=== PATIENT | female | born 1945 | race American Indian/Alaskan Native ===

== ENCOUNTER 2017-02-20 12:02 | Emergency (ER) | payer MEDICARE, OTHER ==
[2017-02-20 12:15] VITALS: TEMP 97.7; O2SAT 97
--- NOTE | 2017-02-20 12:45 | C.PDOC ---
History Of Present Illness 71 y/o female presents to ED with complaints of intermittent sore throat for 2 weeks. Patient states sore throat became worse yesterday when in her community building that had air conditioning on. Patient reports gargling salt, water and bleach with no improvement. Patient denies fever, nausea, vomiting, vision changes. She denies fever. She denies difficulty swallowing. Time Seen by Provider: 02/20/17 12:23 Chief Complaint (Nursing): ENT Problem History Per: Patient History/Exam Limitations: None Onset/Duration Of Symptoms: Days Current Symptoms Are (Timing): Still Present Past Medical History Reviewed: Historical Data, Nursing Documentation, Vital Signs Vital Signs: Last Vital Signs Temp 97.7 F 02/20/17 12:10 Pulse 65 02/20/17 12:10 Resp 18 02/20/17 12:10 BP 93/66 L 02/20/17 12:10 Pulse Ox 97 02/20/17 13:08 - Medical History PMH: Asthma (allergies), Kidney Stones, Chronic Kidney Disease Family History: States: Unknown Family Hx - Social History Hx Alcohol Use: No Hx Substance Use: No - Immunization History Hx Tetanus Toxoid Vaccination: No Hx Influenza Vaccination: No Hx Pneumococcal Vaccination: No Review Of Systems Constitutional: Negative for: Fever, Chills Eyes: Negative for: Vision Change ENT: Positive for: Throat Pain. Negative for: Ear Pain, Nose Pain, Nose Discharge, Mouth Pain, Mouth Swelling, Throat Swelling Cardiovascular: Negative for: Chest Pain, Palpitations, Edema, Light Headedness Respiratory: Negative for: Cough, Shortness of Breath, SOB with Excertion, Pleuritic Pain, Wheezing Gastrointestinal: Negative for: Nausea, Vomiting Genitourinary: Negative for: Dysuria Skin: Negative for: Rash Physical Exam - Physical Exam Appears: Well, Non-toxic, No Acute Distress Skin: Normal Color, Warm Head: Atraumatic, Normacephalic Eye(s): bilateral: Normal Inspection, PERRL, EOMI Nose: Normal Oral Mucosa: Moist Tongue: Normal Appearing Lips: Normal Appearing Teeth: Normal Dentition Gingiva: Normal Appearing Throat: Erythema, No Exudate, No Drooling, No Mass Neck: Supple, Other (No thyromegaly) Chest: Symmetrical Cardiovascular: Rhythm Regular Respiratory: Normal Breath Sounds, No Rales, No Rhonchi, No Wheezing Gastrointestinal/Abdominal: Soft, No Tenderness, No Mass, No Distention Back: Normal Inspection, No CVA Tenderness Extremity: Normal ROM Neurological/Psych: Oriented x3 ED Course And Treatment O2 Sat by Pulse Oximetry: 97 (RA) Medical Decision Making Medical Decision Making: Plan: * Strep Test to rule out Strep throat * 1:06PM Strep negative. Patient is well appearing and afebrile. She was instructed to follow-up with ENT for further evaluation of chronic sore throat Disposition - Disposition Referrals: Yan Sheppard MD [Staff Provider] - Disposition: HOME/ ROUTINE Disposition Time: 13:07 Condition: GOOD Additional Instructions: Keep throat moist. Follow-up with PMD within 2 days for further evaluation of chronic sore throat. Follow up with ENT. Avoid gargling with bleach. Return to ED if condition worsens. Instructions: Pharyngitis (ED) - Clinical Impression Clinical Impression: Sore throat - Scribe Statement The provider has reviewed the documentation as recorded by the Miriamibmaribell White All medical record entries made by the Jonna were at my direction and personally dictated by me. I have reviewed the chart and agree that the record accurately reflects my personal performance of the history, physical exam, medical decision making, and the department course for this patient. I have also personally directed, reviewed, and agree with the discharge instructions and disposition.
[2017-02-20 13:18] VITALS: BP 101/65; PULSE 78; RESP 16
== END 2017-02-20 13:17 | disposition home or self-care (01) ==
LOC: C.ER 12:02
DX: J02.9 Acute pharyngitis, unspecified (principal); Z87.891 Personal history of nicotine dependence

== ENCOUNTER 2017-08-26 12:39 | Emergency (ER) | payer MEDICARE, OTHER ==
[2017-08-26] MEDS ORDERED: Albuterol 0.083% Inhal Sol (2.5 mg/3 mL) UD INH STA (13:31)
[2017-08-26] MEDS ORDERED: Albuterol 0.083% Inhal Sol (2.5 mg/3 mL) UD ONE (14:11)
[2017-08-26 14:13] LABS: BASO % 0.7 % (0.0-2.0); EOS % 0.6 % (0.0-4.0); HEMOGLOBIN 13.6 g/dL (11.0-16.0); LYMPH # 1.9 K/uL (1.0-4.3); LYMPH % 43.7 % (20.0-40.0); MEAN CELL VOLUME 86.6 fL (81.0-99.0); MEAN CORPUSCULAR HGB CONC 34.6 g/dL (33.0-37.0); MONO # 0.5 K/uL (0.0-0.8); MONO % 11.7 % (0.0-10.0); NEUT # 1.9 K/uL (1.8-7.0); NEUT % 43.3 % (50.0-75.0); RBC 4.53 Mil/uL (3.80-5.20); RED CELL DISTRIBUTION WIDTH 13.6 % (11.5-14.5); WHITE BLOOD COUNT 4.4 K/uL (4.8-10.8)
--- NOTE | 2017-08-26 14:14 | RAD ---
Chest x-ray two views History: Shortness of breath. Comparison: 02/12/2016 Findings: Diffuse increased interstitial lung markings which may represent mild venous congestion versus mild interstitial infiltrate. Patchy increased markings at the right lung base. Small right pleural effusion. Tortuous aorta. Degenerative changes in the spine with paravertebral osteophytes. Impression: Diffuse increased interstitial lung markings which may represent mild venous congestion versus mild interstitial infiltrate. Patchy increased markings at the right lung base. Small right pleural effusion.
[2017-08-26] MEDS ORDERED: Azithromycin 500 MG in Sodium Chloride 0.9% 250 ML IVPB STA (14:23)
[2017-08-26 14:33] LABS: ALBUMIN 3.9 g/dL (3.5-5.0); CALCIUM 9.1 mg/dl (8.6-10.4); GFR AFRICAN-AMERICAN > 60; GFR NON-AFRICAN AMERICAN > 60
[2017-08-26 14:34] LABS: ALT/SGPT 27 U/L (9-52); AST/SGOT 35 U/L (14-36); BLOOD UREA NITROGEN 10 mg/dL (7-17); MAGNESIUM 1.9 mg/dL (1.6-2.3)
--- NOTE | 2017-08-26 14:39 | C.PDOC ---
History Of Present Illness 72 year old female presents to ED for evaluation of productive cough with yellow /clear sputum, congestion, and body aches for the last 9 days. Pt was given Rx of Prednisone and Azithromycin with mild improvement. Denies chest pain, shortness of breath, n/v/d, or fever. Time Seen by Provider: 08/26/17 13:02 Chief Complaint (Nursing): Shortness Of Breath History Per: Patient History/Exam Limitations: no limitations Onset/Duration Of Symptoms: Days Current Symptoms Are (Timing): Still Present Exacerbating Factor(s): Coughing Associated Symptoms: Productive Cough. denies: Chest Pain, Bloody Cough, Heart Racing, Leg/Calf Pain, Ankle/Leg Swelling, Dizziness, Light-headedness Recent travel outside of the [place]: No Additional History Per: Patient Past Medical History Reviewed: Historical Data, Nursing Documentation, Vital Signs Vital Signs: Last Vital Signs Temp Pulse 80 08/26/17 16:12 Resp 17 08/26/17 16:12 BP 127/77 08/26/17 16:12 Pulse Ox 100 08/26/17 16:12 - Medical History PMH: Asthma (allergies), Kidney Stones, Chronic Kidney Disease Family History: States: Unknown Family Hx - Social History Hx Alcohol Use: No Hx Substance Use: No - Immunization History Hx Tetanus Toxoid Vaccination: No Hx Influenza Vaccination: No Hx Pneumococcal Vaccination: No Review Of Systems Except As Marked, All Systems Reviewed And Found Negative. Constitutional: Positive for: Other (body aches). Negative for: Fever, Chills ENT: Positive for: Nose Congestion Cardiovascular: Negative for: Chest Pain, Palpitations Respiratory: Positive for: Cough, Sputum. Negative for: Shortness of Breath, Hemoptysis Gastrointestinal: Negative for: Nausea, Vomiting, Abdominal Pain Neurological: Negative for: Headache, Dizziness Physical Exam - Physical Exam Appears: Non-toxic, No Acute Distress Skin: Normal Color, Warm, Dry Head: Atraumatic, Normacephalic Eye(s): bilateral: Normal Inspection Oral Mucosa: Moist Neck: Supple Cardiovascular: Rhythm Regular, No Murmur Respiratory: No Accessory Muscle Use, No Rales, No Rhonchi, Wheezing (expiratory ) Gastrointestinal/Abdominal: Soft, No Tenderness Extremity: Normal ROM, No Pedal Edema, No Deformity Neurological/Psych: Oriented x3, Normal Speech ED Course And Treatment - Laboratory Results Result Diagrams: 08/26/17 14:07 08/26/17 14:07 ECG: Interpreted By Me, Viewed By Me ECG Rhythm: Sinus Rhythm ECG Interpretation: No Acute Changes Interpretation Of ECG: Normal intervals, normal axis, non-specific ST wave changes. Rate From EC (bpm) O2 Sat by Pulse Oximetry: 98 (RA) Pulse Ox Interpretation: Normal Medical Decision Making Medical Decision Making: Plan: Blood work Urinalysis EKG CXR Azithromycin, Solu-Medrol, Rocephin, Albuterol Reassess Assessment: Viral illness Pt refused Zithromax. Patient is being discharged home with instructions to follow up with PMD in 1-2 days for further evaluation. Return to ED if symptoms persist or worsen. Disposition Counseled Patient/Family Regarding: Studies Performed, Diagnosis, Need For Followup, Rx Given - Disposition Disposition: HOME/ ROUTINE Disposition Time: 15:33 Condition: STABLE Additional Instructions: follow up with your doctor or medical clinic in 2 days call to make an appointment take medications as prescribed return to ER if symptoms worsens or progress Prescriptions: Albuterol HFA [Ventolin HFA 90 mcg/actuation (8 g)] 2 puff IH [id number] #1 puff levoFLOXacin [Levaquin] 500 mg PO DAILY #10 tab predniSONE [predniSONE Tab] 50 mg PO DAILY #4 tab Instructions: Community Acquired Pneumonia (DC) Forms: [facility] ([place] Citizen), General Discharge Instructions - Clinical Impression Clinical Impression: Pneumonia - Scribe Statement The provider has reviewed the documentation as recorded by the Miriamibmaribell Edgar All medical record entries made by the Scribe were at my direction and personally dictated by me. I have reviewed the chart and agree that the record accurately reflects my personal performance of the history, physical exam, medical decision making, and the department course for this patient. I have also personally directed, reviewed, and agree with the discharge instructions and disposition.
[2017-08-26 14:44] LABS: B-TYPE NATRIURETIC PEPTIDE 194 pg/mL (0-900)
[2017-08-26 15:50] LABS: SQUAMOUS EPITHIAL 6 /hpf (0-5); URINE BILIRUBIN NEGATIVE (NEGATIVE); URINE BLOOD NEGATIVE (NEGATIVE); URINE CLARITY Hazy (Clear); URINE COLOR Yellow (YELLOW); URINE GLUCOSE (UA) NORMAL (Normal); URINE LEUKOCYTE ESTERASE TRACE Leu/uL (Negative); URINE NITRATE NEGATIVE (NEGATIVE); URINE PROTEIN NEGATIVE (NEGATIVE)
[2017-08-26 16:14] VITALS: BP 127/77; PULSE 80; RESP 17
[2017-08-28 17:08] VITALS: O2SAT 98
--- NOTE | 2017-08-28 22:53 | CARD ---
APPROVED REPORT EKG Measurement Heart [id number] [place] [id number] <Conclusion> Normal sinus rhythm Normal ECG
== END 2017-08-26 16:04 | disposition home or self-care (01) ==
LOC: C.ER 12:39
DX: J18.9 Pneumonia, unspecified organism (principal)
CPT/HCPCS: 71046; 80053; 81001; 83735; 83880; 84484; 85025; 96365; 96375; 99283; J0696; J2930

== ENCOUNTER 2017-09-25 14:10 | Emergency (ER) | payer MEDICARE, OTHER ==
[2017-09-25 16:55] LABS: BASO % 0.9 % (0.0-2.0); EOS # 0.1 K/uL (0.0-0.7); EOS % 2.5 % (0.0-4.0); LYMPH # 1.9 K/uL (1.0-4.3); LYMPH % 41.7 % (20.0-40.0); MEAN CELL VOLUME 87.6 fL (81.0-99.0); MEAN CORPUSCULAR HEMOGLOBIN 29.8 pg (27.0-31.0); MEAN PLATELET VOLUME 7.1 fL (7.2-11.7); MONO # 0.5 K/uL (0.0-0.8); MONO % 10.8 % (0.0-10.0); NEUT % 44.1 % (50.0-75.0); NRBC % 0.1 % (0.0-2.0); RBC 4.72 Mil/uL (3.80-5.20); RED CELL DISTRIBUTION WIDTH 14.4 % (11.5-14.5); WHITE BLOOD COUNT 4.5 K/uL (4.8-10.8)
[2017-09-25 17:04] LABS: URINE BACTERIA RARE (<OCC); URINE BILIRUBIN NEGATIVE (NEGATIVE); URINE BLOOD NEGATIVE (NEGATIVE); URINE CLARITY Clear (Clear); URINE COLOR Yellow (YELLOW); URINE GLUCOSE (UA) NORMAL (Normal); URINE LEUKOCYTE ESTERASE NEGATIVE Leu/uL (Negative); URINE NITRATE NEGATIVE (NEGATIVE); URINE PROTEIN NEGATIVE (NEGATIVE)
--- NOTE | 2017-09-25 17:05 | C.PDOC ---
History Of Present Illness 72 year old female presents to the ED for evaluation of numbness to her left hip and lower back pain which began 5 days ago. Patient states symptoms are worse with movement. She has been taking Advil with transient relief. Patient denies fever, chills, chest pain, shortness of breath, difficulty urinating, urinary/bowel incontinence, abdominal pain, or injuries. Time Seen by Provider: 09/25/17 15:21 Chief Complaint (Nursing): Hip Pain History Per: Patient History/Exam Limitations: no limitations Onset/Duration Of Symptoms: Days (5) Current Symptoms Are (Timing): Still Present Additional History Per: Patient - Hip Description Of Injury: denies: Fell Past Medical History Reviewed: Historical Data, Nursing Documentation, Vital Signs Vital Signs: Last Vital Signs Temp 98.5 F 09/25/17 15:03 Pulse 67 09/25/17 15:03 Resp 16 09/25/17 15:03 BP 119/71 09/25/17 15:03 Pulse Ox 98 09/25/17 17:14 - Medical History PMH: Asthma (allergies), Kidney Stones, Chronic Kidney Disease Surgical History: No Surg Hx Family History: States: Unknown Family Hx - Social History Hx Alcohol Use: No Hx Substance Use: No - Immunization History Hx Tetanus Toxoid Vaccination: No Hx Influenza Vaccination: No Hx Pneumococcal Vaccination: No Review Of Systems Cardiovascular: Negative for: Chest Pain Respiratory: Negative for: Shortness of Breath Genitourinary: Negative for: Incontinence Musculoskeletal: Positive for: Back Pain (lower ) Neurological: Positive for: Numbness (left hip ) Physical Exam - Physical Exam Appears: Non-toxic, No Acute Distress Skin: Normal Color, Warm, Dry, No Other (cellulitis processes ) Head: Atraumatic, Normacephalic Oral Mucosa: Moist Neck: Supple Chest: Symmetrical, No Deformity, No Tenderness Cardiovascular: Rhythm Regular, No Murmur Respiratory: Normal Breath Sounds, No Rales, No Rhonchi, No Wheezing Back: Paraspinal Tenderness (lumbar) Extremity: Normal ROM, Tenderness (to left gluteal region ), Capillary Refill ( less than 2 seconds ), No Swelling, No Other (palpable cord) Pulses: Left Dorsalis Pedis: Normal, Right Dorsalis Pedis: Normal Neurological/Psych: Oriented x3, Normal Speech, Normal Cognition, Normal Sensation ED Course And Treatment - Laboratory Results Result Diagrams: 09/25/17 16:50 09/25/17 17:32 O2 Sat by Pulse Oximetry: 98 (on RA) Pulse Ox Interpretation: Normal Medical Decision Making Medical Decision Making: Assessment: hip numbness, back pain Progress: Bloodwork, urinalysis, LS Spine XR, Hip XR ordered and reviewed. Toradol IVP administered. Disposition Counseled Patient/Family Regarding: Studies Performed, Diagnosis, Need For Followup, Rx Given - Disposition Referrals: [facility] [Outside] Disposition: HOME/ ROUTINE Disposition Time: 18:18 Condition: IMPROVED Additional Instructions: follow up with your doctor in 2 days call to make an appointment take medications as prescribed return to ER if symptoms worsens or progress preliminary reading of xray demonstrates no fracture your xray will be officially read by radiologist Prescriptions: Acetaminophen/Codeine [Tylenol/Codeine 300 MG/30 MG] 1 tab PO Q6H PRN #12 tab PRN Reason: Pain, Severe (8-10) Naproxen [Naprosyn] 500 mg PO BID PRN #16 tab PRN Reason: Pain, Moderate (4-7) Instructions: Joint Pain, Hip Pain Forms: [facility] (Slovak), General Discharge Instructions - Clinical Impression Clinical Impression: Arthralgia, Back pain - Scribe Statement The provider has reviewed the documentation as recorded by the Scribe (Margaret Edgar) Provider Attestation: All medical record entries made by the Scribe were at my direction and personally dictated by me. I have reviewed the chart and agree that the record accurately reflects my personal performance of the history, physical exam, medical decision making, and the department course for this patient. I have also personally directed, reviewed, and agree with the discharge instructions and disposition.
[2017-09-25 18:01] LABS: ALBUMIN 3.6 g/dL (3.5-5.0); ALT/SGPT 8 U/L (9-52); AST/SGOT 45 U/L (14-36); BLOOD UREA NITROGEN 12 mg/dL (7-17); CALCIUM 8.1 mg/dl (8.6-10.4); GFR AFRICAN-AMERICAN > 60; GFR NON-AFRICAN AMERICAN > 60
[2017-09-25 18:43] VITALS: BP 130/84; PULSE 58; RESP 18; TEMP 98.1
--- NOTE | 2017-09-26 12:26 | RAD ---
PROCEDURE: HISTORY: pain COMPARISON: None TECHNIQUE: AP view of the pelvis and applicable frog leg views obtained. FINDINGS: Right L4-5 sclerotic and hypertrophic facet arthrosis Bilateral superolateral joint space narrowing with bilateral superolateral and inferomedial acetabular spurring. No fracture appreciated. Innumerable bilateral phleboliths -pelvic. Moderate stool retention. IMPRESSION: No fracture or dislocation. Arthrosis
--- NOTE | 2017-09-26 12:28 | RAD ---
PROCEDURE: Radiographs of the Lumbar Spine. HISTORY: pain COMPARISON: No prior. FINDINGS: BONES: Normal alignment. No listhesis. No fracture. DISC SPACES: L4-5 and L5-S1 mild disc space narrowing. OTHER FINDINGS: Exuberant set hypertrophic arthrosis at all lumbar levels especially prominent at the L3-4 level and L5-S1 levels. Diffuse endplate ridging most pronounced at L4. Paraspinal canal appear shallow anterior posterior lateral view at L4 level. IMPRESSION: Senescent changes. No fracture appreciated. Possible spinal stenosis
[2017-09-28 13:44] VITALS: O2SAT 98
== END 2017-09-25 18:45 | disposition home or self-care (01) ==
LOC: C.ER 14:10
DX: M25.552 Pain in left hip (principal); M54.5 Low back pain
CPT/HCPCS: 72100; 73502; 80053; 81001; 85025; 96374; 99284; J1885

== ENCOUNTER 2017-10-17 10:34 | Emergency (ER) | payer MEDICARE, OTHER ==
[2017-10-17 10:55] VITALS: RESP 18; TEMP 98.5; O2SAT 99
[2017-10-17] MEDS ORDERED: Lidocaine 5% Patch TD STA (12:15)
--- NOTE | 2017-10-17 12:17 | C.PDOC ---
History Of Present Illness 72yo female with history of arthritis, right knee replacement, presents to ED with complaints of lower back pain radiating to her buttocks for the past 2 weeks. patient also reports numbness to her left hip area, causing her concern and prompting this visit. She was evaluated in this ER once before and has been evaluated by her PCP twice for similar pain; patient is scheduled by her PCP for a pelvic MRI for further evaluation. She denies any injury to trauma to her back. She also denies any headache, nausea, vomiting, fevers, bowel or bladder dysfunction. She has no other medical complaints. Time Seen by Provider: 10/17/17 12:01 Chief Complaint (Nursing): Back Pain History Per: Patient History/Exam Limitations: no limitations Onset/Duration Of Symptoms: Days Current Symptoms Are (Timing): Still Present Quality Of Discomfort: "Pain" Associated Symptoms: New Numbness (left hip area). denies: Incontinence, New Weakness Past Medical History Reviewed: Historical Data, Nursing Documentation, Vital Signs Vital Signs: Last Vital Signs Temp 98.5 F 10/17/17 10:54 Pulse 62 10/17/17 12:28 Resp 18 10/17/17 12:28 BP 132/77 10/17/17 12:28 Pulse Ox 99 10/17/17 12:39 - Medical History PMH: Asthma (allergies), Kidney Stones, Chronic Kidney Disease Other Surgeries: right knee replacement Family History: States: Unknown Family Hx - Social History Hx Alcohol Use: No Hx Substance Use: No - Immunization History Hx Tetanus Toxoid Vaccination: No Hx Influenza Vaccination: No Hx Pneumococcal Vaccination: No Review Of Systems Except As Marked, All Systems Reviewed And Found Negative. Constitutional: Negative for: Fever, Chills Genitourinary: Negative for: Incontinence Musculoskeletal: Positive for: Back Pain Neurological: Positive for: Numbness (left hip area). Negative for: Weakness Physical Exam - Physical Exam Appears: Non-toxic, No Acute Distress Skin: Normal Color Head: Normacephalic Eye(s): bilateral: Normal Inspection Neck: Normal ROM, No Midline Cervical Tenderness, No Paracervical Tenderness, Supple Chest: Symmetrical Cardiovascular: Rhythm Regular Respiratory: Normal Breath Sounds Back: No Vertebral Tenderness, Paraspinal Tenderness (paralumbar tenderness radiating to buttocks) Extremity: Normal ROM, No Tenderness, Other (normal sensations) Neurological/Psych: Oriented x3 ED Course And Treatment O2 Sat by Pulse Oximetry: 99 (RA) Pulse Ox Interpretation: Normal Medical Decision Making Medical Decision Making: Impression: Sciatica Plan: -- Discussed giving Valium to patient for her symptoms however she is requesting flexeril -- Lidocaine patch Patient to be discharged home with flexeril prescription and instructed to follow up with PCP. Disposition Counseled Patient/Family Regarding: Need For Followup, Rx Given - Disposition Disposition: HOME/ ROUTINE Disposition Time: 12:16 Condition: STABLE Additional Instructions: Follow up with your doctor as indicated. Prescriptions: Cyclobenzaprine [Flexeril] 5 mg PO TID #9 tab Instructions: Sciatica Forms: [facility] ([place]enian), General Discharge Instructions - POA Present On Arrival: None - Clinical Impression Clinical Impression: Sciatica - Scribe Statement The provider has reviewed the documentation as recorded by the Scribe (Skye Mcconnell) Provider Attestation: All medical record entries made by the Scribe were at my direction and personally dictated by me. I have reviewed the chart and agree that the record accurately reflects my personal performance of the history, physical exam, medical decision making, and the department course for this patient. I have also personally directed, reviewed, and agree with the discharge instructions and disposition.
[2017-10-17] MEDS ORDERED: Lidocaine 5% Patch TD ONE (12:25)
[2017-10-17 12:30] VITALS: BP 132/77; PULSE 62
== END 2017-10-17 12:31 | disposition home or self-care (01) ==
LOC: C.ER 10:34
DX: M54.30 Sciatica, unspecified side (principal)

== ENCOUNTER 2018-01-15 16:39 | Emergency (ER) | payer MEDICARE, OTHER ==
[2018-01-15 17:01] VITALS: BP 108/66; PULSE 72; RESP 18; TEMP 98.8; O2SAT 98
--- NOTE | 2018-01-15 17:11 | C.PDOC ---
History Of Present Illness 72yo female comes to ER with complaints of ear wax collection in her ear. She reports using q-tips. She denies fever, chills , hearing loss. Time Seen by Provider: 01/15/18 17:05 Chief Complaint (Nursing): ENT Problem History Per: Patient History/Exam Limitations: None Onset/Duration Of Symptoms: Days Current Symptoms Are (Timing): Still Present Quality (Ear): denies: Pain W/Touch, Redness, Swelling, Discharge, Foreign Body Past Medical History Reviewed: Historical Data, Nursing Documentation, Vital Signs Vital Signs: Last Vital Signs Temp 98.8 F 01/15/18 16:59 Pulse 72 01/15/18 16:59 Resp 18 01/15/18 16:59 BP 108/66 01/15/18 16:59 Pulse Ox 98 01/15/18 17:11 - Medical History PMH: Asthma (allergies), Kidney Stones, Chronic Kidney Disease Surgical History: No Surg Hx Family History: States: Unknown Family Hx - Social History Hx Alcohol Use: No Hx Substance Use: No - Immunization History Hx Tetanus Toxoid Vaccination: No Hx Influenza Vaccination: No Hx Pneumococcal Vaccination: No Review Of Systems Except As Marked, All Systems Reviewed And Found Negative. Constitutional: Negative for: Fever, Chills ENT: Positive for: Other (right ear w/ wax) Physical Exam - Physical Exam Appears: Non-toxic, No Acute Distress Skin: Normal Color, Warm, Dry Head: Atraumatic, Normacephalic Eye(s): bilateral: Other (excoriated ear canal. increased wax near TM. no perforation.) Nose: Normal Oral Mucosa: Moist Neck: Normal ROM, Supple Chest: Symmetrical Cardiovascular: Rhythm Regular Respiratory: Normal Breath Sounds Neurological/Psych: Oriented x3 ED Course And Treatment O2 Sat by Pulse Oximetry: 98 (RA) Pulse Ox Interpretation: Normal Medical Decision Making Medical Decision Making: ear wax b/l not impacted ok for Debrox Disposition Doctor Will See Patient In The: Office Counseled Patient/Family Regarding: Studies Performed, Diagnosis - Disposition Referrals: Luigi Jalloh MD [Medical Doctor] - Disposition: HOME/ ROUTINE Disposition Time: 17:11 Condition: GOOD Additional Instructions: debrox 3 drops to alternating ears each night do NOT Q-tip ear canals- pushes wax further back Instructions: Carbamide Peroxide Forms: [facility] (Hebrew) - Clinical Impression Clinical Impression: Excessive ear wax - Scribe Statement The provider has reviewed the documentation as recorded by the Scribe (Skye Mcconnell) Provider Attestation: All medical record entries made by the Scribe were at my direction and personally dictated by me. I have reviewed the chart and agree that the record accurately reflects my personal performance of the history, physical exam, medical decision making, and the department course for this patient. I have also personally directed, reviewed, and agree with the discharge instructions and disposition.
== END 2018-01-15 17:24 | disposition home or self-care (01) ==
LOC: C.ER 16:39
DX: H61.23 Impacted cerumen, bilateral (principal)

== ENCOUNTER 2018-03-18 12:19 | Emergency (ER) | payer MEDICARE, OTHER ==
[2018-03-18] MEDS ORDERED: Albuterol-Ipratrop 3 mg / 0.5 (3 ml) UD INH STA (13:43)
--- NOTE | 2018-03-18 13:51 | C.PDOC ---
History Of Present Illness 72 years old female with PMHx of asthma presents to ED for complaints of productive cough associated with yellow sputum and sore throat that began 10 days ago. Patient states she has been taking over the counter cold medication and cough suppressants but the cough has been persistent which prompted the ED visit. Denies chest pain, SOB, or fever. Time Seen by Provider: 03/18/18 13:04 Chief Complaint (Nursing): Cough, Cold, Congestion History Per: Patient History/Exam Limitations: no limitations Onset/Duration Of Symptoms: Days (10) Current Symptoms Are (Timing): Still Present Recent travel outside of the [place]: No Past Medical History Reviewed: Historical Data, Nursing Documentation, Vital Signs Vital Signs: Last Vital Signs Temp 98 F 03/18/18 12:23 Pulse 65 03/18/18 12:23 Resp 18 03/18/18 12:23 BP 121/68 03/18/18 12:23 Pulse Ox 97 03/18/18 15:32 - Medical History PMH: Asthma (allergies), Kidney Stones Family History: States: Unknown Family Hx - Social History Hx Alcohol Use: No Hx Substance Use: No - Immunization History Hx Tetanus Toxoid Vaccination: No Hx Influenza Vaccination: No Hx Pneumococcal Vaccination: No Review Of Systems Except As Marked, All Systems Reviewed And Found Negative. Constitutional: Negative for: Fever ENT: Positive for: Other (Sore Throat ) Cardiovascular: Negative for: Chest Pain Respiratory: Positive for: Cough (Productive ), Sputum (Yellow) Physical Exam - Physical Exam Additional Physical Exam Comments: Constitutional: No acute distress. Head: Normocephalic. Atraumatic. Eyes: PERRL. ENT: Moist mucous membranes. No erythema or exudates Neck: Supple. Cardiovascular: Regular rate. Radial pulse 2+ bilaterally. Chest: No tenderness. Respiratory: Rhonchi at R lung base. GI: Soft. Nontender. Nondistended. Back: No CVA tenderness. Musculoskeletal: No tenderness or swelling of extremities. Skin: No rash. Neurologic: Alert, no focal deficit. ED Course And Treatment - Laboratory Results Result Diagrams: 03/18/18 15:12 03/18/18 15:12 O2 Sat by Pulse Oximetry: 97 (RA) Pulse Ox Interpretation: Normal Medical Decision Making Medical Decision Making: Administered Duoneb. Ordered CXR. Chest x-ray two views History: Cough. Pneumonia. Comparison: 08/26/2017 Findings: Small loculated right pleural effusion with adjacent right basilar consolidative changes. Diffuse increased interstitial lung markings. Right hilar prominence. Biapical pleural thickening with upper lobe granulomatous changes. Few scattered nodular densities in both lungs which may represent prominent vessels. Mild cardiomegaly. Degenerative changes in the spine with paravertebral osteophytes. Impression: Small loculated right pleural effusion with adjacent right basilar consolidative changes. Diffuse increased interstitial lung markings. Right hilar prominence. Biapical pleural thickening with upper lobe granulomatous changes. Few scattered nodular densities in both lungs which may represent prominent vessels. Mild cardiomegaly. Degenerative changes in the spine with paravertebral osteophytes. Labs unremarkable. CURB65 score 1. Patient wishes to go home, declines admission. IV antibiotic administered here and oral course prescribed. Patient has f/u appointment with PMD tomorrow already scheduled. Instructed to return to ED for any worsening breathing, fever, pain, or any other problem. Disposition - Disposition Disposition: HOME/ ROUTINE Disposition Time: 15:32 Condition: STABLE Additional Instructions: Chest x-ray two views History: Cough. Pneumonia. Comparison: 08/26/2017 Findings: Small loculated right pleural effusion with adjacent right basilar consolidative changes. Diffuse increased interstitial lung markings. Right hilar prominence. Biapical pleural thickening with upper lobe granulomatous changes. Few scattered nodular densities in both lungs which may represent prominent vessels. Mild cardiomegaly. Degenerative changes in the spine with paravertebral osteophytes. Impression: Small loculated right pleural effusion with adjacent right basilar consolidative changes. Diffuse increased interstitial lung markings. Right hilar prominence. Biapical pleural thickening with upper lobe granulomatous changes. Few scattered nodular densities in both lungs which may represent prominent vessels. Mild cardiomegaly. Degenerative changes in the spine with paravertebral osteophytes. Prescriptions: levoFLOXacin [Levaquin] 1 tab PO DAILY #9 tab Instructions: Pneumonia in Adults Forms: [facility] (Indonesian) - POA Core Measure Indicators: Pneumonia - Clinical Impression Clinical Impression: Pneumonia - Scribe Statement The provider has reviewed the documentation as recorded by the Miriamibe Robson Leavitt All medical record entries made by the Scribe were at my direction and personally dictated by me. I have reviewed the chart and agree that the record accurately reflects my personal performance of the history, physical exam, medical decision making, and the department course for this patient. I have also personally directed, reviewed, and agree with the discharge instructions and disposition.
--- NOTE | 2018-03-18 14:25 | RAD ---
Chest x-ray two views History: Cough. Pneumonia. Comparison: 08/26/2017 Findings: Small loculated right pleural effusion with adjacent right basilar consolidative changes. Diffuse increased interstitial lung markings. Right hilar prominence. Biapical pleural thickening with upper lobe granulomatous changes. Few scattered nodular densities in both lungs which may represent prominent vessels. Mild cardiomegaly. Degenerative changes in the spine with paravertebral osteophytes. Impression: Small loculated right pleural effusion with adjacent right basilar consolidative changes. Diffuse increased interstitial lung markings. Right hilar prominence. Biapical pleural thickening with upper lobe granulomatous changes. Few scattered nodular densities in both lungs which may represent prominent vessels. Mild cardiomegaly. Degenerative changes in the spine with paravertebral osteophytes.
[2018-03-18] MEDS ORDERED: Sodium Chloride 0.9% 1,000 ML IV STA (14:34)
[2018-03-18] MEDS ORDERED: Albuterol-Ipratrop 3 mg / 0.5 (3 ml) UD ONE (14:34)
[2018-03-18 15:16] LABS: BASO # 0.1 K/uL (0.0-0.2); BASO % 1.2 % (0.0-2.0); EOS # 0.1 K/uL (0.0-0.7); EOS % 2.6 % (0.0-4.0); HEMOGLOBIN 13.6 g/dL (11.0-16.0); LYMPH # 2.2 K/uL (1.0-4.3); LYMPH % 48.3 % (20.0-40.0); MEAN CELL VOLUME 87.8 fL (81.0-99.0); MEAN CORPUSCULAR HEMOGLOBIN 30.6 pg (27.0-31.0); MEAN CORPUSCULAR HGB CONC 34.8 g/dL (33.0-37.0); MEAN PLATELET VOLUME 6.9 fL (7.2-11.7); MONO # 0.5 K/uL (0.0-0.8); MONO % 10.8 % (0.0-10.0); NEUT # 1.7 K/uL (1.8-7.0); NEUT % 37.1 % (50.0-75.0); NRBC % 0.1 % (0.0-2.0); RBC 4.45 Mil/uL (3.80-5.20); RED CELL DISTRIBUTION WIDTH 13.3 % (11.5-14.5); WHITE BLOOD COUNT 4.4 K/uL (4.8-10.8)
[2018-03-18 15:29] LABS: ALB/GLOB RATIO 1.2 (1.0-2.1); ALT/SGPT 23 U/L (9-52); AST/SGOT 20 U/L (14-36); BLOOD UREA NITROGEN 13 mg/dL (7-17); CALCIUM 9.2 mg/dl (8.6-10.4); GFR AFRICAN-AMERICAN > 60; GFR NON-AFRICAN AMERICAN > 60
[2018-03-18] MEDS ORDERED: Moxifloxacin IV 400mg/250ml NS 400 MG/250 ML BAG IVPB STA (15:30)
[2018-03-18] MEDS ORDERED: Sodium Chloride 0.9% 1,000 ML ONE (15:59)
[2018-03-18] MEDS ORDERED: Moxifloxacin IV 400mg/250ml NS 400 MG/250 ML BAG IVPB ONE (15:59)
[2018-03-18 17:56] VITALS: BP 145/82; PULSE 62; RESP 16; TEMP 97.5; O2SAT 100
== END 2018-03-18 17:58 | disposition home or self-care (01) ==
LOC: C.ER 12:19
DX: J18.9 Pneumonia, unspecified organism (principal); Z87.891 Personal history of nicotine dependence
CPT/HCPCS: 71046; 80053; 85025; 87040; 94640; 96365; 96366; 99285; J2280; J7030

== ENCOUNTER 2018-04-16 17:53 | Emergency (ER) | payer MEDICARE, OTHER ==
[2018-04-16 18:21] VITALS: BP 102/68; PULSE 60; RESP 18; TEMP 98.1; O2SAT 97
--- NOTE | 2018-04-16 19:09 | C.PDOC ---
History Of Present Illness 72 year old female presents to ED for evaluation of left radial fracture diagnosed 1 week ago. Patient requests that splint be fixed/changed because ANGELIA bandage had loosened. Denies any new trauma since visits, numbness, weakness, fever, nausea, vomiting, and other associated symptoms. Time Seen by Provider: 04/16/18 18:29 Chief Complaint (Nursing): Medical Clearance History Per: Patient History/Exam Limitations: no limitations Onset/Duration Of Symptoms: Days Current Symptoms Are (Timing): Still Present Past Medical History Reviewed: Historical Data, Nursing Documentation, Vital Signs Vital Signs: Last Vital Signs Temp 98.1 F 04/16/18 18:20 Pulse 60 04/16/18 18:20 Resp 18 04/16/18 18:20 BP 102/68 04/16/18 18:20 Pulse Ox 97 04/16/18 20:41 - Medical History PMH: Asthma (allergies), Kidney Stones, Chronic Kidney Disease Family History: States: Unknown Family Hx - Social History Hx Alcohol Use: No Hx Substance Use: No - Immunization History Hx Tetanus Toxoid Vaccination: No Hx Influenza Vaccination: No Hx Pneumococcal Vaccination: No Review Of Systems Except As Marked, All Systems Reviewed And Found Negative. Constitutional: Negative for: Fever, Chills Gastrointestinal: Negative for: Nausea, Vomiting Musculoskeletal: Positive for: Hand Pain (left radial fracture ) Neurological: Negative for: Weakness, Numbness, Incoordination Physical Exam - Physical Exam Appears: Well, Non-toxic, No Acute Distress Skin: Normal Color, Warm, Dry Head: Atraumatic, Normacephalic Extremity: Normal ROM, Capillary Refill (less than 2 seconds ), No Deformity, Other (old spint in place ) Pulses: Left Radial: Normal, Right Radial: Normal Neurological/Psych: Oriented x3, Normal Speech, Normal Motor, Normal Sensation Gait: Steady ED Course And Treatment O2 Sat by Pulse Oximetry: 97 (RA) Pulse Ox Interpretation: Normal Medical Decision Making Medical Decision Making: Old records reviewed, the patient was last seen in the ED in 04/06/18 for arm fracture. ED feed research technician, Wilbert replaced sugar tong splint. Patient stable for discharge home and instructed to follow up as needed. Prescribed Singulair. Disposition - Disposition Referrals: Marian White MD [Staff Provider] - [facility] [Outside] Disposition: HOME/ ROUTINE Disposition Time: 19:09 Condition: STABLE Additional Instructions: Follow up with the medical doctor within 1-2 days. Return if worsened. Instructions: Forearm Fracture (DC) Forms: [facility] (Australian) - Clinical Impression Clinical Impression: Forearm fracture - PA / BILLPOSTING SUPERVISOR / Resident Statement MD/DO has reviewed & agrees with the documentation as recorded. - Scribe Statement The provider has reviewed the documentation as recorded by the Scribe (Leigha Osuna) All medical record entries made by the Scribe were at my direction and personally dictated by me. I have reviewed the chart and agree that the record accurately reflects my personal performance of the history, physical exam, medical decision making, and the department course for this patient. I have also personally directed, reviewed, and agree with the discharge instructions and disposition.
== END 2018-04-16 19:18 | disposition home or self-care (01) ==
LOC: C.ER 17:53
DX: S52.92XA Unspecified fracture of left forearm, initial encounter for closed fracture (principal); X58.XXXA Exposure to other specified factors, initial encounter

== ENCOUNTER 2018-05-10 14:09 | Emergency (ER) | payer MEDICARE, OTHER ==
[2018-05-10 14:41] VITALS: BP 126/69; PULSE 70; RESP 20; TEMP 97.8; O2SAT 98
--- NOTE | 2018-05-10 22:01 | C.PDOC ---
History Of Present Illness 72 y/o female with PMH of chronic back pain presents to ED c/o lip swelling s/p witnessed fall on 05/05/18. Pt was at a playground and walking down an inclined surface when she tripped and fell forward on to concrete. Pt admits to head strike but denies LOC. She never got evaluated after her fall. Admits that lip swelling and chin tenderness have diminished greatly since the incident after using ice and ibuprofen. Pt is worried about her worsening back pain and difficulty walking. She adamantly would like to followup with neurology to evaluate the cause of her falls. Denies vision changes, headache, N/V, loose teeth, broken teeth, nose pain, epistaxis, SOB, chest pain, palpitations, syncope, numbness, paresthesias. Chief Complaint (Nursing): ENT Problem Past Medical History Vital Signs: Last Vital Signs Temp 97.8 F 05/10/18 14:37 Pulse 70 05/10/18 14:37 Resp 20 05/10/18 14:37 BP 126/69 05/10/18 14:37 Pulse Ox 98 05/10/18 14:37 - Medical History PMH: Asthma (allergies), Kidney Stones, Chronic Kidney Disease Family History: States: Unknown Family Hx - Social History Hx Alcohol Use: No Hx Substance Use: No - Immunization History Hx Tetanus Toxoid Vaccination: No Hx Influenza Vaccination: No Hx Pneumococcal Vaccination: No Review Of Systems Except As Marked, All Systems Reviewed And Found Negative. Constitutional: Negative for: Fever, Chills, Sweats Eyes: Negative for: Pain, Vision Change ENT: Positive for: Mouth Swelling (lip swelling, top and bottom). Negative for: Ear Pain, Nose Pain, Nose Congestion, Mouth Pain, Throat Pain Cardiovascular: Negative for: Chest Pain, Palpitations Respiratory: Negative for: Cough, Shortness of Breath Gastrointestinal: Negative for: Nausea, Vomiting, Abdominal Pain Genitourinary: Negative for: Dysuria, Frequency, Incontinence Musculoskeletal: Positive for: Arm Pain (left forearm, s/p injury in march), Back Pain (chronic), Leg Pain (hips bilaterally, chronic). Negative for: Neck Pain, Shoulder Pain, Hand Pain, Foot Pain Skin: Negative for: Rash, Bruising Neurological: Positive for: Incoordination. Negative for: Weakness, Numbness, Change in Speech, Confusion, Seizures, Altered Mental Status, Headache, Dizziness Physical Exam - Physical Exam Appears: Well, No Acute Distress Skin: Normal Color, Warm, Dry Head: Atraumatic, Normacephalic, Tenderness (mild tenderness over chin), No Swelling Eye(s): bilateral: Normal Inspection, PERRL, EOMI Ear(s): Left: Normal Nose: Normal Oral Mucosa: Moist Tongue: Normal Appearing, No Swelling, No Lesions, No Laceration, No Bleeding Lips: Swelling (top and bottom lip), Contusion (lower lip), Abrasion (top lip), No Laceration, No Erythema Teeth: No Loose Gingiva: Normal Appearing Throat: Normal Neck: Normal, Normal ROM, No Midline Cervical Tenderness Lymphatic: Normal Exam Chest: Symmetrical Cardiovascular: Rhythm Regular Respiratory: Normal Breath Sounds Back: Normal Inspection, No Vertebral Tenderness, No Decreased ROM, No Muscle Spasm, No Paraspinal Tenderness Extremity: Normal ROM, No Tenderness, No Deformity Pulses: Left Radial: Normal, Right Radial: Normal Neurological/Psych: Oriented x3, Normal Speech, Normal Cognition, Normal Cranial Nerves, No Cerebellar Signs, Normal Motor, Normal Sensation Gait: Steady Other Neurological Findings: No Facial Palsy, No Forehead Sparing, No Tongue Deviation ED Course And Treatment O2 Sat by Pulse Oximetry: 98 Medical Decision Making Medical Decision Making: Lip abrasions are well healing, no signs of infection. No need for wound repair. Discussed desire for neurology referral with pt, pt understands and will followup at her convenience for outpatient workup. Pt comfortable with discharge home RONALD Jasso evaluated and spoke with pt as well, agrees with plan. Impression: Lip abrasion Plan: take ibuprofen as needed for pain use ice to reduce swelling followup with primary doctor within 2 days followup with neurology as soon as possible return to ED if symptoms worsen Disposition - Disposition Referrals: López Sharpe MD [Staff Provider] - Disposition: HOME/ ROUTINE Disposition Time: 16:30 Condition: STABLE Additional Instructions: Take ibuprofen as needed for pain Ice swollen areas as needed Followup with neurology within 2 days Return for worsening symptoms Forms: [facility] (Spanish) - Clinical Impression Clinical Impression: Swollen lip
== END 2018-05-10 17:18 | disposition home or self-care (01) ==
LOC: C.ER 14:09
DX: S00.531A Contusion of lip, initial encounter (principal); S00.511A Abrasion of lip, initial encounter; W01.0XXA Fall on same level from slipping, tripping and stumbling without subsequent striking against object, initial encounter; Y93.01 Activity, walking, marching and hiking; Y92.89 Other specified places as the place of occurrence of the external cause; R22.0 Localized swelling, mass and lump, head

== ENCOUNTER 2018-10-19 13:33 | Emergency (ER) | payer MEDICARE, OTHER ==
[2018-10-19 13:51] VITALS: BP 111/70; PULSE 72; RESP 18; TEMP 98.6; O2SAT 98
[2018-10-19] MEDS ORDERED: Albuterol 0.083% Inhal Sol (2.5 mg/3 mL) UD INH STA (14:03)
--- NOTE | 2018-10-19 14:41 | RAD ---
Date of service: 10/19/2018 HISTORY: Cough and congestion COMPARISON: 03/18/2018. TECHNIQUE: Chest PA and lateral FINDINGS: LINES AND TUBES: None. LUNG AND PLEURA: The lungs are well inflated and clear. No pleural effusion or pneumothorax. HEART AND MEDIASTINUM: The heart is not enlarged. No aortic atherosclerotic calcifications present. The hilar and mediastinal contours are within normal limits. SKELETAL STRUCTURES: The bony structures are within normal limits for the patient's age. VISUALIZED UPPER ABDOMEN: Normal. OTHER FINDINGS: There is chronic elevation of the right hemidiaphragm. IMPRESSION: No active pulmonary disease.
--- NOTE | 2018-10-19 16:00 | C.PDOC ---
History Of Present Illness 73-year-old female presents to the ED for evaluation of cough and chest congestion which began several weeks ago. Patient states she was evaluated by her primary medical doctor and diagnosed with a viral illness. She was prescribed prednisone and Tamiflu, which has helped her in the past, but this time she has been finding no relief after taking the medications. Patient states the cough and congestion is still bother her and she has now developed some stomach cramps and diarrhea. Otherwise, she denies fever, chills, vomiting, c hest pain, and shortness of breath at this time. Time Seen by Provider: 10/19/18 13:51 Chief Complaint (Nursing): Cough, Cold, Congestion History Per: Patient History/Exam Limitations: no limitations Onset/Duration Of Symptoms: Other (several weeks ) Current Symptoms Are (Timing): Still Present Additional History Per: Patient Past Medical History Reviewed: Historical Data, Nursing Documentation, Vital Signs Vital Signs: Last Vital Signs Temp 98.6 F 10/19/18 13:47 Pulse 72 10/19/18 13:47 Resp 18 10/19/18 13:47 BP 111/70 10/19/18 13:47 Pulse Ox 98 10/19/18 13:47 - Medical History PMH: Asthma (allergies), Kidney Stones, Chronic Kidney Disease Surgical History: No Surg Hx Family History: States: Unknown Family Hx - Social History Hx Alcohol Use: No Hx Substance Use: No - Immunization History Hx Tetanus Toxoid Vaccination: No Hx Influenza Vaccination: No Hx Pneumococcal Vaccination: No Review Of Systems Constitutional: Negative for: Fever, Chills Cardiovascular: Negative for: Chest Pain Respiratory: Positive for: Cough, Other (chest congestion ). Negative for: Shortness of Breath Gastrointestinal: Positive for: Abdominal Pain, Diarrhea. Negative for: Vomiting Physical Exam - Physical Exam Appears: Non-toxic, No Acute Distress Skin: Normal Color, Warm, Dry Head: Atraumatic, Normacephalic Eye(s): bilateral: Normal Inspection Oral Mucosa: Moist Neck: Supple Chest: Symmetrical, No Deformity, No Tenderness Cardiovascular: Rhythm Regular, No Murmur Respiratory: No Rales, Rhonchi, Wheezing Gastrointestinal/Abdominal: Soft, No Tenderness, No Guarding, No Rebound Extremity: Normal ROM, Capillary Refill (less than 2 seconds ) Neurological/Psych: Oriented x3, Normal Speech, Normal Cognition ED Course And Treatment O2 Sat by Pulse Oximetry: 98 Pulse Ox Interpretation: Normal - Other Rad CXR X-Ray: Viewed By Me, Read By Radiologist Interpretation: Date of service: 10/19/2018. HISTORY: Cough and congestion. COMPARISON: 03/18/2018. TECHNIQUE: Chest PA and lateral. FINDINGS: LINES AND TUBES: None. LUNG AND PLEURA: The lungs are well inflated and clear. No pleural effusion or pneumothorax. HEART AND MEDIASTINUM: The heart is not enlarged. No aortic atherosclerotic calcifications present. The hilar and mediastinal contours are within normal limits. SKELETAL STRUCTURES: The bony structures are within normal limits for the patient's age. VISUALIZED UPPER ABDOMEN: Normal. OTHER FINDINGS: There is chronic elevation of the right hemidiaphragm. IMPRESSION: No active pulmonary disease. Medical Decision Making Medical Decision Making: Progress: CXR ordered and reviewed. Information Technology Intern pneumonia seen. Albuterol INH and Prednisone PO given. Disposition - Disposition Disposition: HOME/ ROUTINE Disposition Time: 15:55 Condition: IMPROVED Additional Instructions: 1. Follow up with your doctor. 2. Use the Albuterol nebs 3-4 times a day for the next 3 days. 3. Take a full dose of Prednisone (60mg) once a day for the next 3 days. 4. Take the Antibiotics if no significant improvement in the next 24 hours. Prescriptions: Albuterol 0.083% [Albuterol 0.083% Inhal Delmi (2.5 mg/3 ml) UD] 2.5 mg IH TID #24 neb Azithromycin [Z-Ray] 250 mg PO DAILY #6 tab predniSONE [predniSONE Tab] 60 mg PO DAILY #9 tab Instructions: Upper Respiratory Infection (ED) Forms: [facility] (French), General Discharge Instructions - POA Present On Arrival: None - Clinical Impression Clinical Impression: Influenza-like illness - Scribe Statement The provider has reviewed the documentation as recorded by the Scribe (Margaret Edgar) Provider Attestation: All medical record entries made by the Scribe were at my direction and personally dictated by me. I have reviewed the chart and agree that the record accurately reflects my personal performance of the history, physical exam, medical decision making, and the department course for this patient. I have also personally directed, reviewed, and agree with the discharge instructions and disposition.
== END 2018-10-19 16:16 | disposition home or self-care (01) ==
LOC: C.ER 13:33
DX: J11.1 Influenza due to unidentified influenza virus with other respiratory manifestations (principal)

== ENCOUNTER 2018-10-20 11:29 | Emergency (ER) | payer MEDICARE, OTHER ==
[2018-10-20 11:50] VITALS: RESP 18; TEMP 98.9
[2018-10-20] MEDS ORDERED: Albuterol-Ipratrop 3 mg / 0.5 (3 ml) UD INH STA (12:01)
[2018-10-20] MEDS ORDERED: Albuterol-Ipratrop 3 mg / 0.5 (3 ml) UD ONE ×2 (12:05→12:19)
--- NOTE | 2018-10-20 12:20 | C.PDOC ---
History Of Present Illness 73 y/o female was seen here yesterday for cough and wheezing, with a negative chest x-ray and discharged with Prednisone, Z-Ray, and albuterol for an inhaler. Patient states that shes currently not staying with her daughter who has the nebulizer machine, so she is requesting one and a rescue inhaler. Patient has no other associated symptoms. Time Seen by Provider: 10/20/18 11:44 Chief Complaint (Nursing): Medical Clearance History Per: Patient History/Exam Limitations: no limitations Onset/Duration Of Symptoms: Days Current Symptoms Are (Timing): Still Present Past Medical History Reviewed: Historical Data, Nursing Documentation, Vital Signs Vital Signs: Last Vital Signs Temp 98.9 F 10/20/18 11:36 Pulse 81 10/20/18 11:36 Resp 18 10/20/18 11:36 BP 117/78 10/20/18 11:36 Pulse Ox 96 10/20/18 11:36 - Medical History PMH: Asthma (allergies), Kidney Stones, Chronic Kidney Disease Family History: States: Unknown Family Hx - Social History Hx Alcohol Use: Yes Hx Substance Use: No - Immunization History Hx Tetanus Toxoid Vaccination: Yes Hx Influenza Vaccination: No Hx Pneumococcal Vaccination: No Review Of Systems Constitutional: Negative for: Fever, Chills ENT: Negative for: Nose Congestion, Throat Pain Cardiovascular: Negative for: Chest Pain Respiratory: Positive for: Cough, Wheezing Gastrointestinal: Negative for: Nausea, Vomiting Genitourinary: Negative for: Dysuria, Hematuria Musculoskeletal: Negative for: Neck Pain Skin: Negative for: Rash Neurological: Negative for: Weakness, Numbness Physical Exam - Physical Exam Appears: Non-toxic, No Acute Distress Skin: Warm, Dry Head: Atraumatic, Normacephalic Eye(s): bilateral: PERRL, EOMI Oral Mucosa: Moist Throat: Normal, No Erythema, No Exudate, Other (uvula midline) Neck: Supple Chest: No Tenderness Cardiovascular: Rhythm Regular, No Murmur Respiratory: No Rales, No Rhonchi, Wheezing (scattered wheezing) Extremity: No Pedal Edema, No Calf Tenderness Extremity: Bilateral: Atraumatic, Normal Color And Temperature, Normal ROM Neurological/Psych: Oriented x3, Normal Speech, Normal Cognition Gait: Steady ED Course And Treatment O2 Sat by Pulse Oximetry: 96 Medical Decision Making Medical Decision Making: Plan: --Nebulizer treatment 1229 pt with dec wheezing after neb tx. some scattered oarse breath sounds that clear with cough. will d/c home with albuterolmdi, rx for nebulizer machine. pthad neg cxr yesterday and was discharged with albuterol solution., z-ray, and prednisone. Disposition Counseled Patient/Family Regarding: Diagnosis, Need For Followup, Rx Given - Disposition Referrals: Luigi Jalloh MD [Medical Doctor] - Disposition: HOME/ ROUTINE Disposition Time: 12:31 Condition: IMPROVED Additional Instructions: Use inhaler or nebulizer machine every 4-6 hours. Take other medications prescribed yesterday (prednisone and zithromax) until done. Follow up with your docotr or in medical clinic in a few days. Return for worse symptoms. Prescriptions: Albuterol HFA [Ventolin HFA 90 mcg/actuation (8 g)] 2 puff IH Q6 #1 inhaler Nebulizer [Compact Compressor Nebulizer] 1 dev XX PRN PRN #1 dev PRN Reason: Wheezing Instructions: Acute Bronchitis, Adult (DC) Forms: [employer] [facility] (Georgian) - Clinical Impression Clinical Impression: Bronchitis - PA / HAND STAMPER / Resident Statement MD/DO has reviewed & agrees with the documentation as recorded. - Scribe Statement The provider has reviewed the documentation as recorded by the Scribe Maureen Pruitt All medical record entries made by the Scribe were at my direction and personally dictated by me. I have reviewed the chart and agree that the record accurately reflects my personal performance of the history, physical exam, medical decision making, and the department course for this patient. I have also personally directed, reviewed, and agree with the discharge instructions and disposition.
[2018-10-20 12:39] VITALS: BP 120/70; PULSE 78
[2018-10-23 10:58] VITALS: O2SAT 96
== END 2018-10-20 12:39 | disposition home or self-care (01) ==
LOC: C.ER 11:29
DX: J40 Bronchitis, not specified as acute or chronic (principal)

== ENCOUNTER 2018-10-24 14:16 | Emergency (ER) | payer MEDICARE, OTHER ==
[2018-10-24 15:36] LABS: BASO % 0.2 % (0.0-2.0); EOS % 0.2 % (0.0-4.0); LYMPH # 0.6 K/uL (1.0-4.3); MEAN CELL VOLUME 89.3 fL (81.0-99.0); MEAN CORPUSCULAR HEMOGLOBIN 30.7 pg (27.0-31.0); MEAN CORPUSCULAR HGB CONC 34.3 g/dL (33.0-37.0); MEAN PLATELET VOLUME 6.9 fL (7.2-11.7); MONO # 0.2 K/uL (0.0-0.8); MONO % 3.4 % (0.0-10.0); NEUT # 5.4 K/uL (1.8-7.0); NEUT % 86.2 % (50.0-75.0); NRBC % 0.1 % (0.0-2.0); RBC 4.57 Mil/uL (3.80-5.20); RED CELL DISTRIBUTION WIDTH 14.7 % (11.5-14.5); WHITE BLOOD COUNT 6.3 K/uL (4.8-10.8)
[2018-10-24] MEDS ORDERED: Albuterol-Ipratrop 3 mg / 0.5 (3 ml) UD ONE (15:54)
[2018-10-24 15:57] LABS: ALB/GLOB RATIO 1.4 (1.0-2.1); ALBUMIN 4.2 g/dL (3.5-5.0); ALT/SGPT 22 U/L (9-52); AST/SGOT 22 U/L (14-36); BLOOD UREA NITROGEN 18 mg/dL (7-17); CALCIUM 9.3 mg/dl (8.6-10.4); GFR NON-AFRICAN AMERICAN > 60
[2018-10-24] MEDS: Albuterol-Ipratrop 3 mg / 0.5 (3 ml) UD IH SCH ×2 (16:01→16:02)
[2018-10-24 16:09] LABS: B-TYPE NATRIURETIC PEPTIDE 35.4 pg/mL (0-900)
--- NOTE | 2018-10-24 16:20 | C.PDOC ---
History Of Present Illness 73 y/o female with no significant PMHx presents to the ED for complaints of persistent cough and congestion. Patient has two prior ED visits here for similar complaints. She was initially seen on 10/19 for cough/congestion/wheezing and had x-ray that was unremarkable. Patient was treated with albuterol and steroids and discharged home. On 10/20 patient returned stating she did not have access to nebulizer machine she thought she would have, and was requesting rx. She was then discharged home with nebulizer machine as well as ventolin and cough meds, and advised to continue steroid. Today patient presents with complaints of persistent wheezing, and feeling that symptoms did not resolve quickly enough. She reports overall improvement in coughing, but has some chest tightness. Cough worsens when lying flat. Now complains of new-onset bloating, and feeling full quickly when eating. On further questioning patient admits she has not moved bowels in 1 week. Otherwise she denies fevers, chills, chest pain, headache, neck pain, nausea, vomiting, or diarrhea. Time Seen by Provider: 10/24/18 14:55 Chief Complaint (Nursing): Cough, Cold, Congestion History Per: Patient History/Exam Limitations: no limitations Onset/Duration Of Symptoms: Days Current Symptoms Are (Timing): Still Present Associated Symptoms: Cough, Nasal Congestion Past Medical History Reviewed: Historical Data, Nursing Documentation, Vital Signs Vital Signs: Last Vital Signs Temp 98.4 F 10/24/18 14:35 Pulse 76 10/24/18 14:35 Resp 20 10/24/18 14:35 BP 124/74 10/24/18 14:35 Pulse Ox 96 10/24/18 14:35 - Medical History PMH: Asthma (allergies), Kidney Stones, Chronic Kidney Disease Family History: States: Unknown Family Hx - Social History Hx Alcohol Use: Yes Hx Substance Use: No - Immunization History Hx Tetanus Toxoid Vaccination: Yes Hx Influenza Vaccination: No Hx Pneumococcal Vaccination: No Review Of Systems Except As Marked, All Systems Reviewed And Found Negative. Constitutional: Negative for: Fever, Chills Eyes: Negative for: Vision Change ENT: Positive for: Nose Congestion Cardiovascular: Positive for: Other (chest tightness). Negative for: Chest Pain Respiratory: Positive for: Cough (worse when lying down), Wheezing. Negative for: Shortness of Breath Gastrointestinal: Positive for: Constipation, Other (Bloating, early fullness when eating). Negative for: Nausea, Vomiting, Diarrhea Musculoskeletal: Negative for: Neck Pain Neurological: Negative for: Weakness, Numbness, Headache, Dizziness Physical Exam - Physical Exam Appears: Non-toxic, No Acute Distress Skin: Warm, Dry, No Rash Head: Atraumatic, Normacephalic Eye(s): bilateral: Normal Inspection, PERRL, EOMI Nose: Normal Oral Mucosa: Moist Throat: Normal (oropharynx clear), No Erythema, No Exudate Neck: Normal ROM, Supple Chest: Symmetrical, No Tenderness Cardiovascular: Rhythm Regular, No Murmur Respiratory: Normal Breath Sounds, No Accessory Muscle Use, No Rales, No Rhonchi, No Wheezing, Other (No respiratory distress) Gastrointestinal/Abdominal: Soft, No Tenderness, No Distention Back: Normal Inspection Extremity: Bilateral: Atraumatic, Normal Color And Temperature, Normal ROM Neurological/Psych: Oriented x3, Normal Speech Gait: Steady ED Course And Treatment - Laboratory Results Result Diagrams: 10/24/18 15:32 10/24/18 15:32 Lab Results: Troponin I < 0.0120 ng/mL (0.00-0.120) 10/24/18 15:32 NT-Pro-B Natriuret Pep 35.4 pg/mL (0-900) 10/24/18 15:32 Total Bilirubin 0.3 mg/dL (0.2-1.3) 10/24/18 15:32 AST 22 U/L (14-36) 10/24/18 15:32 ALT 22 U/L (9-52) 10/24/18 15:32 Alkaline Phosphatase 81 U/L (38-126) 10/24/18 15:32 Total Protein 7.3 g/dL (6.3-8.3) 10/24/18 15:32 Albumin 4.2 g/dL (3.5-5.0) 10/24/18 15:32 Globulin 3.0 gm/dL (2.2-3.9) 10/24/18 15:32 Albumin/Globulin Ratio 1.4 (1.0-2.1) 10/24/18 15:32 ECG: Interpreted By Me, Viewed By Me ECG Rhythm: Sinus Rhythm Interpretation Of ECG: No ST elevations or depressions Rate From EC O2 Sat by Pulse Oximetry: 96 (on RA) Pulse Ox Interpretation: Normal Medical Decision Making Medical Decision Making: Impression: Cough, Constipation, will obtain cardiac work-up with abd films Plan: - EKG - CMP - Pro-BNP - Troponin I - CBC - Obstructive series x-ray - Duoneb x1 - Peak flow pre/post neb Labs and imaging reviewed, showing +constipation. Patient advised to take Benefiber and Miralax, which can be purchased over the counter. Labs reviewed, and are grossly normal. Trop negative. On re-evaluation patient is sitting comfortably, with no chest pain or chest tightness. Educated regarding proper dietary recommendations for constipation. Patient admits to eating rice daily. Will discharge patient home. Instructions for follow up provided. Disposition Counseled Patient/Family Regarding: Studies Performed, Diagnosis, Need For Followup - Disposition Disposition: HOME/ ROUTINE Disposition Time: 16:52 Condition: STABLE Additional Instructions: Follow up with your doctor. Instructions: Constipation, Adult (DC), Wheezing Forms: [facility] (Bulgarian) - POA Present On Arrival: None - Clinical Impression Clinical Impression: Bronchospasm, Constipation - Scribe Statement The provider has reviewed the documentation as recorded by the Jonna Stephens Provider Attestation: All medical record entries made by the Jonna were at my direction and personall y dictated by me. I have reviewed the chart and agree that the record accurately reflects my personal performance of the history, physical exam, medical decision making, and the department course for this patient. I have also personally directed, reviewed, and agree with the discharge instructions and disposition.
[2018-10-24 16:36] VITALS: BP 113/69; PULSE 80; RESP 18; TEMP 98.3
[2018-10-24 16:54] VITALS: O2SAT 96
--- NOTE | 2018-10-24 17:50 | RAD ---
Date of service: 10/24/2018 PROCEDURE: Radiographs of the chest and abdomen (obstructive series) HISTORY: bloating COMPARISON: Chest x-ray performed 10/19/18 TECHNIQUE: AP radiograph of the chest, with upright and supine radiographs of the abdomen. FINDINGS: CHEST: Heart size appears within normal limits. Small right greater than left pleural effusions. Bibasilar atelectasis/infiltrates. No definite pneumothorax. Please note that chest x-ray has limited sensitivity for the detection of pulmonary masses. ABDOMEN AND PELVIS: Moderate to severe constipation. Nonspecific bowel gas pattern. No definite free air. No acute osseous abnormality is detected. IMPRESSION: Small right greater than left pleural effusions and bibasilar atelectasis/infiltrates. Moderate to severe constipation.
--- NOTE | 2018-10-28 21:59 | CARD ---
APPROVED REPORT Date of service: 10/24/2018 EKG Measurement Heart [id number] <Conclusion> Normal sinus rhythm Minimal voltage criteria for LVH, may be normal variant Abnormal ECG
== END 2018-10-24 16:58 | disposition home or self-care (01) ==
LOC: C.ER 14:16
DX: J98.01 Acute bronchospasm (principal); K59.00 Constipation, unspecified